=== PATIENT | female | born 1970 | race Caucasian/White ===

== ENCOUNTER 2022-05-09 09:46 | Observation (INO) | payer OTHER, SELFPAY ==
[2022-05-09] VITALS (19 sets, daily range): BP systolic 104–141; BP diastolic 68–89; PULSE 71–97; RESP 9–20; TEMP 36.5–36.8; O2SAT 97–100; BMI 29.2
--- NOTE | 2022-05-09 09:57 | DI.RAD.S_ITS ---
PROCEDURE: XR CHEST 1V INDICATIONS: chest pain TECHNIQUE: One view of the chest was acquired. COMPARISON: None. FINDINGS: Surgical changes and devices: None. Lungs and pleura: Lungs are clear. No pleural effusions or pneumothorax. Mediastinum: Mediastinal contours appear normal. Heart size is normal. Bones and chest wall: No suspicious bony lesions. Overlying soft tissues appear unremarkable. IMPRESSION: No acute cardiopulmonary disease process. Dictated by: Teetee Segura MD, PhD on 05/09/2022 at 10:40 Approved by: Teetee Segura MD, PhD on 05/09/2022 at 10:41
[2022-05-09 10:18] LABS: Add Manual Diff / Slide Review NO; Basophils Absolute Auto 0 /uL (0-100); Basophils Percent Auto 0.6 % (0-2); Eosinophils Absolute Auto 200 /uL (0-450); Eosinophils Percent Auto 2.4 % (2-4); Hematocrit 41.3 % (36-46); Lymphocytes Absolute Auto 2200 /uL (1100-4500); Lymphocytes Percent Auto 33.7 % (25-40); Mean Corpuscular HGB Conc 33.9 % (30-36); Mean Corpuscular Hemoglobin 30.7 PG (26-34); Mean Corpuscular Volume 90.5 fL (80-100); Monocytes Absolute Auto 300 /uL (0-900); Monocytes Percent Auto 4.6 % (3-14); Neutrophils Absolute Auto 3700 /uL (1500-7000); Neutrophils Percent Auto 58.7 % (50-75); Platelet Count 213 X10^3/uL (150-400); Red Blood Cell Count 4.56 X10^6/uL (4.0-5.2); Red Cell Distribution Width 12.7 % (11.6-14.8); White Blood Cell Count 6.4 X10^3/uL (4.5-11.0)
[2022-05-09 10:29] LABS: Alanine Aminotransferase 29 IU/L (<35); Albumin 4.7 g/dL (3.5-5.0); Albumin Globulin Ratio 1.5 (1.0-2.8); Alkaline Phosphatase 95 U/L (38-126); Aspartate Aminotransferase 30 IU/L (14-36); BUN Creatinine Ratio 20.6 (6-22); Bilirubin Total 0.4 mg/dL (0.2-1.3); Blood Urea Nitrogen 21 mg/dL (7-17); Calcium 9.5 mg/dL (8.4-10.2); Carbon Dioxide 25 mmol/L (22-32); Chloride 107 mmol/L (98-107); Creatine Kinase 230 U/L (30-135); Estimated Glomerular Filt Rate > 60 mL/min (>60); Globulin 3.1 g/dL (1.7-4.1); Glucose 121 mg/dL (70-100); HEMOLYSIS < 15 (0-50); Lipase 114 U/L (23-300); Potassium 4.2 mmol/L (3.4-5.1); Sodium 142 mmol/L (137-145); Total Protein 7.8 g/dL (6.3-8.2)
--- NOTE | 2022-05-09 10:32 | PC.NURSE ---
Pt states that she has had intermittent chest pain for years. Pt reports that she occasionally has flipped T waves d/t a coronary spasm and then it goes back to normal.
[2022-05-09 10:41] LABS: Troponin I < 0.012 ng/mL (0.01-0.034)
[2022-05-09 10:44] LABS: CKMB % Relative Index 1.7 % (1.5-5.0); Creatine Kinase MB 3.88 ng/mL (<2.37)
--- NOTE | 2022-05-09 11:05 | ED.CHESTPAIN ---
HPI - Chest Pain General Chief Complaint: Chest Pain Stated Complaint: Chest pain Time Seen by Provider: 05/09/22 10:53 Source: patient Mode of arrival: Family Vehicle Limitations: no limitations History of Present Illness HPI narrative: Patient here for non reproducible substernal chest pressure nonradiating without any nausea or sweating or dyspnea. Ongoing off and on for the past 1 month. She did take nitro prior to arrival and it did help. Not had aspirin today. Patient is retired from the . In 2010 she was stationed in [place], she had the same discomfort/chest pain and had a stress test and echocardiogram and noted have flipped T-waves which did resolve within a year. Four years later she was in [place] and had the same discomfort and worked up again by cardiology indeterminate to have coronary spasms. Was placed on nitroglycerin as well as amlodipine. Has been doing well until recently this past April. Primary care is trying to set her up with cardiology services but that has not materialized yet. She states she has strong family history of coronary disease including sister with [place]. at her age. Denies any recent illness. Related Data Home Medications Medication Instructions Recorded Confirmed acyclovir 200 mg capsule 200 mg PO BID 05/09/22 05/09/22 amlodipine 5 mg tablet 5 mg PO DAILY 05/09/22 05/09/22 famotidine 20 mg tablet 20 mg PO BID 05/09/22 05/09/22 indomethacin 50 mg capsule 100 mg PO BID 05/09/22 05/09/22 nitroglycerin 0.4 mg sublingual 0.4 mg sublingual Q5M PRN chest 05/09/22 05/09/22 tablet pain nortriptyline 10 mg capsule 20 mg PO BEDTIME 05/09/22 05/09/22 pantoprazole 20 mg tablet,delayed 20 mg PO DAILY 05/09/22 05/09/22 release rosuvastatin 20 mg tablet 20 mg PO DAILY 05/09/22 05/09/22 topiramate 100 mg tablet 50 mg PO BID 05/09/22 05/09/22 Allergies Allergy/AdvReac Type Severity Reaction Status Date / Time No Known Drug Allergies Allergy Verified 05/09/22 10:02 Review of Systems Review of Systems Narrative: GENERAL: Denies chills, fatigue, malaise, fever, sweats. HEENT: Denies sinus pain, ear pain, sore throat RESPIRATORY: Denies dyspnea, cough CARDIOVASCULAR: Positive for chest pain, negative for palpitations GASTROINTESTINAL: Denies nausea, vomiting, abdominal pain : Denies dysuria, frequency, hematuria MUSCULOSKELETAL: denies muscle or bony pain SKIN: Denies rash, skin lesions NEUROLOGIC: Denies weakness, numbness ROS Unobtainable: All systems reviewed & are unremarkable except as noted in HPI and below Patient History Medical History (Updated 05/09/22 @ 23:09 by FELIPE Russell) Coronary artery spasm Hyperlipidemia Lymphedema Migraines Overweight (BMI 25.0-29.9) [facility] History History of spinal fusion History of third molar tooth extraction Status post hysterectomy Family History Sister Myocardial infarction History of heart artery stent Father Myocardial infarction History of heart artery stent S/P CABG x 3 Social History household members: family Smoking Status: Former smoker Smoking Status: Former smoker tobacco type: cigarettes alcohol intake frequency: 0-2 drinks per day Substance Use Type: does not use Exam Narrative Exam Narrative: GENERAL: in no distress, not toxic not dyspneic HEAD: Normocephalic. EYES: Pupils equal round No scleral icterus. ENT: Mucous membranes moist. NECK: Trachea midline. CARDIOVASCULAR: Regular rate and rhythm without murmurs RESPIRATORY: Clear to auscultation. Breath sounds equal bilaterally. No wheezes, rales, or rhonchi. GASTROINTESTINAL: Abdomen soft, non-tender EXTREMITIES: No gross deformities. NEURO: AOx4. SKIN: Warm and dry PSYCH: Not anxious, is cooperative Initial Vital Signs Initial Vital Signs: Vital Signs Pulse Rate 97 H 05/09/22 09:51 Pulse Oximetry 99 05/09/22 09:51 Scores HEART Score Heart Score history: Slightly Suspicious Heart Score EKG: Non-Specific repolarization disturbance Heart Score Age: 45-64 years old Heart Score risk factors: 1-2 risk factors Heart Score troponin: < or = to normal limit Heart Score Total: 3 Course Course Course Narrative: No new issues during course of stay Decision to Admit Date: 05/09/22 Decision to Admit time: 11:09 Orders Ordered: Discontinued Medications Acetaminophen (Acetaminophen 325 Mg Tablet) 650 mg PO Q6HR PRN PRN Reason: Fever/Mild Pain (1-3) Last Admin: 05/10/22 08:20 Dose: 650 mg Documented By: HCW Acyclovir (Acyclovir 200 Mg Capsule) 200 mg PO BID [facility] Last Admin: 05/10/22 09:45 Dose: 200 mg Documented By: Admin: 05/09/22 21:57 Dose: Not Given Documented By: CHRISSY Acyclovir (Acyclovir 200 Mg Capsule) 400 mg PO BID [facility] Acyclovir (Acyclovir 400 Mg Tablet) 400 mg PO BID [facility] Amlodipine Besylate (Amlodipine 5 Mg Tablet) 5 mg PO DAILY [facility] Last Admin: 05/10/22 09:12 Dose: 5 mg Documented By: HCW Aspirin (Aspirin 81 Mg Chew Tab) 324 mg PO NOW ONE Stop: 05/09/22 11:06 Last Admin: 05/09/22 11:15 Dose: 324 mg Documented By: JOSEP Aspirin (Aspirin Ec 81 Mg Tablet) 81 mg PO DAILY [facility] Last Admin: 05/10/22 09:12 Dose: 81 mg Documented By: HCW Atorvastatin Calcium (Atorvastatin 20 Mg Tablet) 40 mg PO DAILY [facility] Last Admin: 05/10/22 09:12 Dose: 40 mg Documented By: HCW Enoxaparin Sodium (Enoxaparin 40 Mg/0.4 Ml Syringe) 40 mg SUBCUT DAILY [facility] Last Admin: 05/10/22 09:13 Dose: Not Given Documented By: HCW Famotidine (Famotidine 20 Mg Tablet) 20 mg PO BID [facility] Last Admin: 05/10/22 09:12 Dose: 20 mg Documented By: Admin: 05/09/22 21:57 Dose: Not Given Documented By: CHRISSY Sodium Chloride (Normal Saline 0.9%) 1,000 mls @ 1,000 mls/hr IV BOLUS ONE Stop: 05/09/22 12:04 Last Infusion: 05/09/22 12:23 Dose: 0 mls/hr Documented By: Admin: 05/09/22 11:18 Dose: 1,000 mls/hr Documented By: JOSEP Nitroglycerin (Nitroglycerin Oint 1 Inch/Gm Oint...G.) 0.5 inch TOP NOW ONE Stop: 05/09/22 11:06 Last Admin: 05/09/22 11:16 Dose: 0.5 inch Documented By: JOSEP Nortriptyline HCl (Nortriptyline 10 Mg Capsule) 20 mg PO BEDTIME [facility] Last Admin: 05/09/22 21:58 Dose: Not Given Documented By: CHRISSY Pantoprazole Sodium (Pantoprazole Dr 20 Mg Tablet) 20 mg PO DAILY [facility] Sodium Chloride (Sodium Chloride 0.9% Flush) 10 ml IV BID [facility] Last Admin: 05/10/22 09:21 Dose: 10 ml Documented By: Admin: 05/09/22 21:55 Dose: 10 ml Documented By: CHRISSY Sodium Chloride (Sodium Chloride 0.9% Flush) 10 ml IV PRN PRN PRN Reason: Flush Topiramate (Topiramate 100 Mg Tablet) 50 mg PO BID [facility] Last Admin: 05/10/22 09:12 Dose: 50 mg Documented By: Admin: 05/09/22 21:58 Dose: Not Given Documented By: CHRISSY Reevaluation(s) Reevaluation #1: Patient agrees for admission for a stress test echocardiogram Time: 11:11 Consultations Consultation #1: Spoke with hospitalist Dr. Elizabeth, would like troponin repeat done at 2:00 p.m. and if normal he will admit Time: 11:23 Consultation #2: Spoke with Cardiology Dr. Valentine, reviewed EKG troponin risk factors, at this time appropriate for treadmill stress test and not nuclear stress test, plus/minus echocardiogram. If reassuring stress test then will need to increased dosing of amlodipine at home. Time: 12:10 Vital Signs Vital signs: Vital Signs - 8 hr 05/09/22 09:57 05/09/22 11:16 05/09/22 09:51 Temperature 97.9 F Pulse Rate 85 77 97 H Respiratory Rate 20 Blood Pressure 141/89 H 118/73 Pulse Oximetry 100 99 Oxygen Delivery Method Room Air 05/09/22 09:52 05/09/22 09:52 05/09/22 10:00 Temperature Pulse Rate 94 H Respiratory Rate Blood Pressure 141/89 H 118/76 Pulse Oximetry 100 Oxygen Delivery Method 05/09/22 10:00 05/09/22 10:30 05/09/22 10:30 Temperature Pulse Rate 77 78 Respiratory Rate 13 Blood Pressure 128/80 Pulse Oximetry 100 100 Oxygen Delivery Method 05/09/22 11:00 05/09/22 11:00 05/09/22 11:18 Temperature Pulse Rate 82 Respiratory Rate 18 Blood Pressure 118/73 107/69 Pulse Oximetry 99 Oxygen Delivery Method 05/09/22 11:18 05/09/22 11:30 05/09/22 11:30 Temperature Pulse Rate 84 76 Respiratory Rate 11 L 9 L Blood Pressure 122/76 Pulse Oximetry 100 100 Oxygen Delivery Method 05/09/22 11:47 05/09/22 11:47 05/09/22 12:00 Temperature Pulse Rate 90 Respiratory Rate 13 Blood Pressure 115/75 120/75 Pulse Oximetry 100 Oxygen Delivery Method 05/09/22 12:00 05/09/22 12:30 05/09/22 12:30 Temperature Pulse Rate 75 73 Respiratory Rate 13 13 Blood Pressure 110/72 Pulse Oximetry 100 99 Oxygen Delivery Method 05/09/22 13:00 05/09/22 13:00 05/09/22 13:30 Temperature Pulse Rate 72 Respiratory Rate 16 Blood Pressure 118/72 110/75 Pulse Oximetry 99 Oxygen Delivery Method 05/09/22 13:30 Temperature Pulse Rate 72 Respiratory Rate 14 Blood Pressure Pulse Oximetry 99 Oxygen Delivery Method MDM - Chest Pain Differential Diagnosis Differential diagnosis: Likely pneumothorax, stable angina, unstable angina pectoris, atypical chest pain, st elevation myocardial infarction, costochondritis and chest pain Lab Data Result diagrams: 05/09/22 10:05 05/09/22 10:05 Labs: Lab Results 05/09/22 05/09/22 05/09/22 Range/Units 10:05 10:05 10:05 WBC 6.4 (4.5-11.0) X10^3/uL RBC 4.56 (4.0-5.2) X10^6/uL Hgb 14.0 (12.0-16.0) g/dL Hct 41.3 (36-46) % MCV 90.5 (80-100) fL MCH 30.7 (26-34) PG MCHC 33.9 (30-36) % RDW 12.7 (11.6-14.8) % Plt Count 213 (150-400) X10^3/uL Neut % (Auto) 58.7 (50-75) % Lymph % (Auto) 33.7 (25-40) % [place] % (Auto) 4.6 (3-14) % Eos % (Auto) 2.4 (2-4) % Baso % (Auto) 0.6 (0-2) % Neut # (Auto) 3700 (6348-8523) /uL Lymph # (Auto) 2200 (0126-4640) /uL [place] # (Auto) 300 (0-900) /uL Eos # (Auto) 200 (0-450) /uL Baso # (Auto) 0 (0-100) /uL Sodium 142 (137-145) mmol/L Potassium 4.2 (3.4-5.1) mmol/L Chloride 107 (98-107) mmol/L Carbon Dioxide 25 (22-32) mmol/L BUN 21 H (7-17) mg/dL Creatinine 1.02 (0.52-1.04) mg/dL Estimated GFR > 60 (>60) mL/min BUN/Creatinine Ratio 20.6 (6-22) Glucose 121 H (70-100) mg/dL Hemoglobin A1c 5.8 (4.0-6.0) % Calcium 9.5 (8.4-10.2) mg/dL Magnesium 2.0 (1.6-2.3) mg/dL Total Bilirubin 0.4 (0.2-1.3) mg/dL AST 30 (14-36) IU/L ALT 29 (<35) IU/L Alkaline Phosphatase 95 (38-126) U/L Total Creatine Kinase 230 H (30-135) U/L CK-MB (CK-2) 3.88 H (<2.37) ng/mL CK-MB (CK-2) Rel Index 1.7 (1.5-5.0) % Troponin I < 0.012 (0.01-0.034) ng/mL Total Protein 7.8 (6.3-8.2) g/dL Albumin 4.7 (3.5-5.0) g/dL Globulin 3.1 (1.7-4.1) g/dL Albumin/Globulin Ratio 1.5 (1.0-2.8) Triglycerides (35-150) mg/dL Cholesterol (140-199) mg/dL LDL Cholesterol, Calc (<100) mg/dL HDL Cholesterol (40-60) mg/dL Lipase 114 (23-300) U/L Urine RBC (0-5/HPF) Urine WBC (0-5/HPF) Amorphous Sediment Urine Bacteria (None) Ur Culture Indicated? SARS-CoV-2 (PCR) (Negative) 05/09/22 05/09/22 05/09/22 Range/Units 10:05 11:08 11:52 WBC (4.5-11.0) X10^3/uL RBC (4.0-5.2) X10^6/uL Hgb (12.0-16.0) g/dL Hct (36-46) % MCV (80-100) fL MCH (26-34) PG MCHC (30-36) % RDW (11.6-14.8) % Plt Count (150-400) X10^3/uL Neut % (Auto) (50-75) % Lymph % (Auto) (25-40) % [place] % (Auto) (3-14) % Eos % (Auto) (2-4) % Baso % (Auto) (0-2) % Neut # (Auto) (7294-1272) /uL Lymph # (Auto) (5934-2502) /uL [place] # (Auto) (0-900) /uL Eos # (Auto) (0-450) /uL Baso # (Auto) (0-100) /uL Sodium (137-145) mmol/L Potassium (3.4-5.1) mmol/L Chloride (98-107) mmol/L Carbon Dioxide (22-32) mmol/L BUN (7-17) mg/dL Creatinine (0.52-1.04) mg/dL Estimated GFR (>60) mL/min BUN/Creatinine Ratio (6-22) Glucose (70-100) mg/dL Hemoglobin A1c (4.0-6.0) % Calcium (8.4-10.2) mg/dL Magnesium (1.6-2.3) mg/dL Total Bilirubin (0.2-1.3) mg/dL AST (14-36) IU/L ALT (<35) IU/L Alkaline Phosphatase (38-126) U/L Total Creatine Kinase (30-135) U/L CK-MB (CK-2) (<2.37) ng/mL CK-MB (CK-2) Rel Index (1.5-5.0) % Troponin I (0.01-0.034) ng/mL Total Protein (6.3-8.2) g/dL Albumin (3.5-5.0) g/dL Globulin (1.7-4.1) g/dL Albumin/Globulin Ratio (1.0-2.8) Triglycerides 85 (35-150) mg/dL Cholesterol 145 (140-199) mg/dL LDL Cholesterol, Calc 91 (<100) mg/dL HDL Cholesterol 37 L (40-60) mg/dL Lipase (23-300) U/L Urine RBC 1-5/hpf (0-5/HPF) Urine WBC 5-10/hpf H (0-5/HPF) Amorphous Sediment 1+ Urine Bacteria Many (>30) H (None) Ur Culture Indicated? Specimen cultured SARS-CoV-2 (PCR) Negative (Negative) 05/09/22 Range/Units 14:04 WBC (4.5-11.0) X10^3/uL RBC (4.0-5.2) X10^6/uL Hgb (12.0-16.0) g/dL Hct (36-46) % MCV (80-100) fL MCH (26-34) PG MCHC (30-36) % RDW (11.6-14.8) % Plt Count (150-400) X10^3/uL Neut % (Auto) (50-75) % Lymph % (Auto) (25-40) % [place] % (Auto) (3-14) % Eos % (Auto) (2-4) % Baso % (Auto) (0-2) % Neut # (Auto) (3311-8010) /uL Lymph # (Auto) (6211-2369) /uL [place] # (Auto) (0-900) /uL Eos # (Auto) (0-450) /uL Baso # (Auto) (0-100) /uL Sodium (137-145) mmol/L Potassium (3.4-5.1) mmol/L Chloride (98-107) mmol/L Carbon Dioxide (22-32) mmol/L BUN (7-17) mg/dL Creatinine (0.52-1.04) mg/dL Estimated GFR (>60) mL/min BUN/Creatinine Ratio (6-22) Glucose (70-100) mg/dL Hemoglobin A1c (4.0-6.0) % Calcium (8.4-10.2) mg/dL Magnesium (1.6-2.3) mg/dL Total Bilirubin (0.2-1.3) mg/dL AST (14-36) IU/L ALT (<35) IU/L Alkaline Phosphatase (38-126) U/L Total Creatine Kinase 179 H (30-135) U/L CK-MB (CK-2) 3.85 H (<2.37) ng/mL CK-MB (CK-2) Rel Index 2.2 (1.5-5.0) % Troponin I < 0.012 (0.01-0.034) ng/mL Total Protein (6.3-8.2) g/dL Albumin (3.5-5.0) g/dL Globulin (1.7-4.1) g/dL Albumin/Globulin Ratio (1.0-2.8) Triglycerides (35-150) mg/dL Cholesterol (140-199) mg/dL LDL Cholesterol, Calc (<100) mg/dL HDL Cholesterol (40-60) mg/dL Lipase (23-300) U/L Urine RBC (0-5/HPF) Urine WBC (0-5/HPF) Amorphous Sediment Urine Bacteria (None) Ur Culture Indicated? SARS-CoV-2 (PCR) (Negative) Urine Dip Bedside Urine Glucose Negative Bedside Urine Bilirubin - Negative Bedside Urine Ketone - Negative Urine Specific [place] 1.015 Bedside Urine Occult Blood - Negative Bedside Urine pH 6.0 Bedside Urine Protein - Negative Bedside Urine Urobilinogen - Negative Bedside Urine Nitrite - Negative Bedside Urine Leukocytes +++ 500 Esterase Imaging Data Chest x-ray: Radiologist's Impression: [address] [address] XRay Report Signed Patient: Sara Mcclellan MR#: [id number] : 1970 Acct:[id number] Age/Sex: 51 / F Date of Service: 05/09/22 Loc: ED Accession Number: [id number] ?? Procedure: XR chest 1V Ordering Provider: Reginaldo Lake MD PROCEDURE:? XR CHEST 1V ? INDICATIONS:? chest pain ? TECHNIQUE:? One view of the chest was acquired.? ? COMPARISON:? None. ? FINDINGS:? ? Surgical changes and devices:? None.? ? Lungs and pleura:? Lungs are clear.? No pleural effusions or pneumothorax.? ? Mediastinum:? Mediastinal contours appear normal.? Heart size is normal.? ? Bones and chest wall:? No suspicious bony lesions.? Overlying soft tissues appear unremarkable.? ? IMPRESSION:? No acute cardiopulmonary disease process. ? ? Dictated by: Teetee Segura MD, PhD on 05/09/2022 at 10:40 ? ? Approved by: Teetee Segura MD, PhD on 05/09/2022 at 10:41 ? ECG Data Interpretation: Normal sinus rhythm rate [address] elevation or depression MDM Narrative Medical decision making narrative: Appropriate for admission for chest pain rule out and stress test and echocardiogram. Two sets of enzymes were done. Chest pain-free during course of ER stay. Reviewed with patient and hospitalist and agree for admit. Patient does have significant primary family risk factors of coronary artery disease Discharge Plan Departure Patient Disposition: Admitted as Observation Clinical Impression: Chest pain Admit Date/Time: 05/09/22 14:45 Admit Provider: Mayo Elizabeth
[2022-05-09] MEDS: ASPIRIN 81 MG CHEW TAB 324 MG PO (11:15)
[2022-05-09] MEDS: NITROGLYCERIN OINT 1 INCH/GM OINT...G. 0.5 INCH TOP (11:16)
[2022-05-09] MEDS: SODIUM CHLORIDE 0.9% 1,000 ML 1000 ML IV (11:18)
[2022-05-09 11:39] LABS: COVID19 -Nasal RAPID Negative (Negative)
[2022-05-09 12:06] LABS: Amorphous Sediment Urine 1+; Bacteria Urine Many (>30); Culture Indicated Urine Specimen Cultured; RBC Urine 1-5/HPF (0-5/HPF); WBC Urine 5-10/HPF (0-5/HPF)
--- NOTE | 2022-05-09 12:07 | PC.NURSE ---
Dr. Lake asked to speak to Dr. Valentine who is client service and consulting manager for cardiology. I paged Dr. Valentine at [phone] and he responded within the minute and I connected him with Dr. Lake.
[2022-05-09 14:25] LABS: Creatine Kinase 179 U/L (30-135)
[2022-05-09 14:38] LABS: Troponin I < 0.012 ng/mL (0.01-0.034)
[2022-05-09 14:40] LABS: CKMB % Relative Index 2.2 % (1.5-5.0); Creatine Kinase MB 3.85 ng/mL (<2.37)
--- NOTE | 2022-05-09 14:48 | DI.ECHO.S_ITS ---
[facility]---------+ [facility] +---------+ : : [address] [address] : : : : [id number] : : : : Phone: [phone]+ Echocardiogram Report + + :Name: ADONAY GONSALVES Study Date: 05/10/2022 Height: 63 in : :[facility] ReadingLocation: Weight: 165 lb : : Gender: Female BSA: 1.8 m2 : :: 1970 Age: 51 yrs BP: 117/74 mmHg: :Reason For Study: CHEST PAIN : :Ordering Physician: LUIS, : :WENDY Ruth D.O Performed By: Mirtha Valdez : :Referring: WENDY SMITH D.O : + + Interpretation Summary The ejection fraction is estimated to be 50-55%. There is no significant valvular heart disease. Procedure: A two-dimensional transthoracic echocardiogram with color flow and Doppler was performed. The study quality was technically adequate. There is no prior echocardiogram noted for this patient. The patient was in sinus rhythm with heart rates between 74--82 bpm during the exam. Left Ventricle: The left ventricle is normal in size and wall thickness. The ejection fraction is estimated to be 50-55%. Left ventricular wall motion is normal. Right Ventricle: The right ventricle is normal in size and function. Atria: The left atrial size is normal. Right atrial size is normal. There is no Doppler evidence for an interatrial shunt. Mitral Valve: The mitral valve is normal in structure and function. There is trace mitral regurgitation. Aortic Valve: The aortic valve is trileaflet. The aortic valve opens well. There is no aortic valve stenosis. No aortic regurgitation is present. Tricuspid Valve: The tricuspid valve is normal in structure and function. There is mild tricuspid regurgitation. The right ventricular systolic pressure is estimated to be at least 20 mmHg based on an estimated right atrial pressure of 3 mm Hg. Pulmonic Valve: The pulmonic valve leaflets are thin and pliable; valve motion is normal. There is no pulmonic valvular regurgitation. Great Vessels: The aortic root is normal size. The dimensions of the ascending aorta are normal. The IVC is of normal diameter and collapses greater than 50% with a sniff. This suggests a low right atrial pressure of 3 mm Hg. Pericardium/ Pleura There is no pericardial effusion. There is no pleural effusion. MMode/2D Measurements & Calculations LVIDd: 3.9 cm LVOT diam: 2.1 cm LVIDs: 2.9 cm Ao root diam: 2.7 cm FS: 25.4 % asc Aorta Diam: 3.3 cm IVSd: 0.81 cm Ao Arch Diam (Prox Trans): 2.8 cm LVPWd: 0.68 cm LV tejeda. diameter/BSA (cm/m^2): 2.2 LV sys. diameter/BSA (cm/m^2): 1.6 LA A2 area: 13.1 cm2 RA long axis: 4.5 cm LA A4 area: 13.9 cm2 RA area: 12.8 cm2 LA length (vol): 4.5 cm RA vol: 30.8 ml LA vol: 34.1 ml RA : 17.3 ml/m2 LA vol index: 19.1 ml/m2 IVC diam: 1.6 cm RVD1 (basal): 3.1 cm RVD2 (mid): 2.6 cm TAPSE: 1.7 cm Doppler Measurements & Calculations Ao V2 max: 107.8 cm/sec LVOT Max Compa: 90.3 cm/sec Ao V2 mean: 70.9 cm/sec LV V1 max P.3 mmHg Ao max P.6 mmHg LV V1 VTI: 17.5 cm Ao mean P.3 mmHg LINDA(I,D): 3.4 cm2 Ao V2 VTI: 18.9 cm LINDA(V,D): 3.0 cm2 sev ratio: 0.93 LINDA indexed to BSA (cm^2/m^2): 1.9 MV E max compa: 81.0 cm/sec TR max compa: 208.3 cm/sec MV A max compa: 73.9 cm/sec TR max P.4 mmHg MV E/A: 1.1 PA V2 max: 74.7 cm/sec Med Peak E' Compa: 8.9 cm/sec PA V2 mean: 50.7 cm/sec E/E' med: 9.1 PA mean P.2 mmHg Lat Peak E' Compa: 11.7 cm/sec PA pr(Accel): 39.6 mmHg E/E' lat: 6.9 E/e' average: 8.0 MV dec time: 0.18 sec SV(LVOT): 63.4 ml Reading Physician:02:30 PM
[2022-05-09 15:25] LABS: Cholesterol 145 mg/dL (140-199); HDL Cholesterol 37 mg/dL (40-60); LDL Cholesterol Calculated 91 mg/dL (<100); Triglycerides 85 mg/dL (35-150)
[2022-05-09 15:26] LABS: Hemoglobin A1C% w Est Avg Glu 5.8 % (4.0-6.0)
[2022-05-09] MEDS: SODIUM CHLORIDE 0.9% FLUSH 10 ML IV (21:55)
--- NOTE | 2022-05-09 22:55 | PM.HP.1 ---
History of Present Illness History of Present Illness Date Patient Seen: 05/09/22 Time Patient Seen: 15:56 Chief complaint: Chest pain Narrative: Sara Mcclellan is a 51-year-old female with a history coronary spasms, migraines, hyperlipidemia, left leg lymphedema, and right-sided unilateral neuralgiform headaches, who presented to the ED for non reproducible, sharp, substernal chest pain, that began earlier in the day while walking her dog, without radiation nausea, vomiting, diaphoresis, or shortness of breath. Has been occurring off and on for the past 1 month.? She states that she took an oral nitro at home, which changed the pain from sharp to a pressure, but did not resolve. The pressure continued until she presented to the ED where they placed a nitro patch which then relieved the chest pressure. Not had aspirin today.? Patient is retired from the .? In 2010 she was stationed in [place], she had the same discomfort/chest pain and had a stress test and echocardiogram and noted have flipped T-waves which did resolve within a year.? Four years later she was in [place] and had the same discomfort and worked up again by cardiology indeterminate to have coronary spasms.? Was placed on nitroglycerin as well as amlodipine.? Has been doing well until recently this past April.? Primary care is trying to set her up with cardiology services but that has not materialized yet.? Patient reports that her sister had multiple stents and SC and at age of 54, her father also had his 1st heart attack it 41 had multiple bypass surgeries as well. Upon admit patient is resting comfortably in bed denies chest pain, shortness of breath, swelling of extremities, abdominal pain, nausea, vomiting, diarrhea, fever, chills, cough, recent illness, headache, acute changes in vision, balance or coordination issues, weakness, numbness, tingling, recent injury or trauma. Upon admit patient's vitals are stable afebrile temp 98.2?, BP 126/83, HR 91, RR 16, O2 saturation 100% on room air. Patient's CBC CMP are all unremarkable, T CK 179, CK-MB 3.85, troponin x2 are negative, lipids are negative, lipase negative, chest x-ray no acute cardiopulmonary processes. Patient's EKG normal sinus rhythm with a rate of [address] or T-wave changes. Heart Score:2 Patient admitted for chest pain and risk stratification. ? Patient History Medical History (Updated 05/09/22 @ 23:09 by FELIPE Russell) Coronary artery spasm Hyperlipidemia Lymphedema Migraines Overweight (BMI 25.0-29.9) Shrt lst uni nral hdache Surgical History History of spinal fusion History of third molar tooth extraction Status post hysterectomy Family & Social History Family History Sister Myocardial infarction History of heart artery stent Father Myocardial infarction History of heart artery stent S/P CABG x 3 Social History: household members family Prior Living Arrangements House Safety & Behavioral: Feels Safe in Current Yes Environment Been Physically Hurt or No Threatened By a Person Tobacco & Substance use: Smoking Status Former smoker alcohol intake frequency 0-2 drinks per day Substance Use Type does not use Meds Home Medications and Allergies Home Medications Medication Instructions Recorded Confirmed Type acyclovir 200 mg capsule 200 mg PO BID 05/09/22 05/09/22 History amlodipine 5 mg tablet 5 mg PO DAILY 05/09/22 05/09/22 History famotidine 20 mg tablet 20 mg PO BID 05/09/22 05/09/22 History indomethacin 50 mg capsule 100 mg PO BID 05/09/22 05/09/22 History nitroglycerin 0.4 mg sublingual 0.4 mg sublingual Q5M PRN chest 05/09/22 05/09/22 History tablet pain nortriptyline 10 mg capsule 20 mg PO BEDTIME 05/09/22 05/09/22 History pantoprazole 20 mg tablet,delayed 20 mg PO DAILY 05/09/22 05/09/22 History release rosuvastatin 20 mg tablet 20 mg PO DAILY 05/09/22 05/09/22 History topiramate 100 mg tablet 50 mg PO BID 05/09/22 05/09/22 History Allergies Allergy/AdvReac Type Severity Reaction Status Date / Time No Known Drug Allergies Allergy Verified 05/09/22 10:02 Review of Systems Review of Systems Narrative: All 12 point systems reviewed with the patient and are negative except otherwise documented. Exam Vital Signs (past 8 hours): - 05/09/22 15:00 05/09/22 15:00 05/09/22 15:50 Temperature 98.2 F Pulse Rate 78 91 H Respiratory Rate 12 16 Blood Pressure 104/68 126/83 Pulse Oximetry 99 100 Oxygen Flow Rate 0 05/09/22 21:40 Temperature 97.7 F Pulse Rate 78 Respiratory Rate 14 Blood Pressure 112/72 Pulse Oximetry 97 Oxygen Flow Rate 0 Oxygen Delivery Method Room Air Oxygen Flow Rate 0 Narrative Exam Narrative: General: Patient is a well-developed, well-nourished female in no distress at this time. HEENT: Normocephalic, atraumatic, extraocular muscles intact, oral pharynx is clear and mucous membranes are moist. Neck is supple and symmetric, trachea is midline, no adenopathy, no thyroid enlargement, nontender, no masses palpated. Negative for JVD Chest: Normal AP diameter and contour without kyphoscoliosis, no nasal flaring, retractions, or tachypneic labored Lungs: Auscultation of all lung calvo are clear without adventitious sounds, wheezes, rhonchi, or rales. Cardio: S1 & S2 with regular rate and rhythm without murmur, rubs, or gallops, no carotid bruit, no cardiac pulsations present. Abdomen: Soft nontender, negative for organomegaly, or masses. Bowel sounds are present in all 4 quadrants without guarding or rebound, no CVA tenderness. Musculoskeletal: Muscle strength and tone are equal within normal limits, no deformity, crepitus, effusions, cyanosis, clubbing or edema present. Full range of motion intact radial and pedal pulses are normal. Skin: Warm dry and intact without rashes, ulcerations or petechiae. Neuro: Alert and orientated x3, strength is +5/5 in all extremities, sensation to touch intact, no gross deficits noted of cranial nerves. Psych: Patient has a well-kept appearance, appropriate affect, mental status attitude thought context and judgment are appropriate for age. Objective Labs Result Diagrams: 05/09/22 10:05 05/09/22 10:05 Labs: Laboratory Results - last 24 hr 05/09/22 05/09/22 05/09/22 10:05 10:05 10:05 WBC 6.4 RBC 4.56 Hgb 14.0 Hct 41.3 MCV 90.5 MCH 30.7 MCHC 33.9 RDW 12.7 Plt Count 213 Neut % (Auto) 58.7 Lymph % (Auto) 33.7 [place] % (Auto) 4.6 Eos % (Auto) 2.4 Baso % (Auto) 0.6 Neut # (Auto) 3700 Lymph # (Auto) 2200 [place] # (Auto) 300 Eos # (Auto) 200 Baso # (Auto) 0 Sodium 142 Potassium 4.2 Chloride 107 Carbon Dioxide 25 BUN 21 H Creatinine 1.02 Estimated GFR > 60 BUN/Creatinine Ratio 20.6 Glucose 121 H Hemoglobin A1c 5.8 Calcium 9.5 Magnesium 2.0 Total Bilirubin 0.4 AST 30 ALT 29 Alkaline Phosphatase 95 Total Creatine Kinase 230 H CK-MB (CK-2) 3.88 H CK-MB (CK-2) Rel Index 1.7 Troponin I < 0.012 Total Protein 7.8 Albumin 4.7 Globulin 3.1 Albumin/Globulin Ratio 1.5 Triglycerides Cholesterol LDL Cholesterol, Calc HDL Cholesterol Lipase 114 Urine RBC Urine WBC Amorphous Sediment Urine Bacteria Ur Culture Indicated? SARS-CoV-2 (PCR) 05/09/22 05/09/22 05/09/22 10:05 11:08 11:52 WBC RBC Hgb Hct MCV MCH MCHC RDW Plt Count Neut % (Auto) Lymph % (Auto) [place] % (Auto) Eos % (Auto) Baso % (Auto) Neut # (Auto) Lymph # (Auto) [place] # (Auto) Eos # (Auto) Baso # (Auto) Sodium Potassium Chloride Carbon Dioxide BUN Creatinine Estimated GFR BUN/Creatinine Ratio Glucose Hemoglobin A1c Calcium Magnesium Total Bilirubin AST ALT Alkaline Phosphatase Total Creatine Kinase CK-MB (CK-2) CK-MB (CK-2) Rel Index Troponin I Total Protein Albumin Globulin Albumin/Globulin Ratio Triglycerides 85 Cholesterol 145 LDL Cholesterol, Calc 91 HDL Cholesterol 37 L Lipase Urine RBC 1-5/hpf Urine WBC 5-10/hpf H Amorphous Sediment 1+ Urine Bacteria Many (>30) H Ur Culture Indicated? Specimen cultured SARS-CoV-2 (PCR) Negative 05/09/22 14:04 WBC RBC Hgb Hct MCV MCH MCHC RDW Plt Count Neut % (Auto) Lymph % (Auto) [place] % (Auto) Eos % (Auto) Baso % (Auto) Neut # (Auto) Lymph # (Auto) [place] # (Auto) Eos # (Auto) Baso # (Auto) Sodium Potassium Chloride Carbon Dioxide BUN Creatinine Estimated GFR BUN/Creatinine Ratio Glucose Hemoglobin A1c Calcium Magnesium Total Bilirubin AST ALT Alkaline Phosphatase Total Creatine Kinase 179 H CK-MB (CK-2) 3.85 H CK-MB (CK-2) Rel Index 2.2 Troponin I < 0.012 Total Protein Albumin Globulin Albumin/Globulin Ratio Triglycerides Cholesterol LDL Cholesterol, Calc HDL Cholesterol Lipase Urine RBC Urine WBC Amorphous Sediment Urine Bacteria Ur Culture Indicated? SARS-CoV-2 (PCR) Assessment & Plan Assessment & Plan narrative: Sara Mcclellan is a 51-year-old female with a history coronary spasms, migraines, hyperlipidemia, left leg lymphedema, and right-sided unilateral neuralgiform headaches, who is admitted for chest pain. 1. Chest pain, substernal nonradiating, acute on chronic, in the setting of coronary spasm, present on admission -chest pain was resolved at the time of admit-patient is asymptomatic and stable. -vital signs are stable, troponin x2 negative, CK-MB 3.85. -EKG NSR at a rate of [address] or T-wave changes -treadmill stress test & Echo ordered tomorrow -ASA, Nitro ordered -continue patient's amlodipine 2. Hyperlipidemia, chronic, present on admission related to overweight -Lipitor given in place of patients rouvastatin -lipid panel within normal limits 3. Overweight as evidence by BMI of 29.2, acute on chronic, present on admission -patient receiving dietary education regarding diet lifestyle and weight loss through PCP 4. Unilateral neuralgiform headaches (right)/migraines, chronic, present on admission -continue nortriptyline, Topamax 5. Lymphedema, left leg, chronic, present on admission -continue indomethacin 6. GERD, chronic, present on admission -continue famotidine Code status: Full Surrogate decision maker: Kirk SERRA PCR:Negative DVT/VTE prophylaxis: Lovenox and SCDs Disposition: Patient admitted for observation, treadmill stress and echo tomorrow expected length of stay less than 2 midnights. I have utilized all available immediate resources to obtain, update, or review the patient's current medications. I confirmed that the patient's advanced care plan is present, Code status is documented and/or surrogate decision maker is listed in the patient's medical record. Time Spent With Patient Critical Care time: I spent a total of [] minutes of critical care time on this patient's care today; this time is exclusive of procedural time.
[2022-05-10 01:00] VITALS: BP 104/64; PULSE 60; RESP 14; TEMP 36.4; O2SAT 100
[2022-05-10 04:50] VITALS: BP 111/71; PULSE 77; RESP 14; TEMP 36.3; O2SAT 97
[2022-05-10 05:43] LABS: Troponin I < 0.012 ng/mL (0.01-0.034)
[2022-05-10 08:00] VITALS: BP 116/78; PULSE 81; RESP 18; TEMP 36.5; O2SAT 99
--- NOTE | 2022-05-10 08:09 | P.DS_ITS ---
History of Present Illness History of Present Illness Date Patient Seen: 05/10/22 Time Patient Seen: 17:00 Chief complaint: Chest pain Narrative: Sara Mcclellan is a 51-year-old female with a history coronary spasms, migraines, hyperlipidemia, left leg lymphedema, and right-sided unilateral neuralgiform headaches, who presented to the ED for non reproducible, sharp, substernal chest pain, that began earlier in the day while walking her dog, without radiation nausea, vomiting, diaphoresis, or shortness of breath. Has been occurring off and on for the past 1 month.? She states that she took an oral nitro at home, which changed the pain from sharp to a pressure, but did not resolve.? The pressure continued until she presented to the ED where they placed a nitro patch which then relieved the chest pressure. Not had aspirin today.? Patient is retired from the .? In 2010 she was stationed in [place], she had the same discomfort/chest pain and had a stress test and echocardiogram and noted have flipped T-waves which did resolve within a year.? Four years later she was in [place] and had the same discomfort and worked up again by cardiology indeterminate to have coronary spasms.? Was placed on nitroglycerin as well as amlodipine.? Has been doing well until recently this past April.? Primary care is trying to set her up with cardiology services but that has not materialized yet.? Patient reports that her sister had multiple stents and CA and at age of 54, her father also had his 1st heart attack it 41 had multiple bypass surgeries as well.? Upon admit patient is resting comfortably in bed denies chest pain, shortness of breath, swelling of extremities, abdominal pain, nausea, vomiting, diarrhea, fever, chills, cough, recent illness, headache, acute changes in vision, balance or coordination issues, weakness, numbness, tingling, recent injury or trauma. Upon admit patient's vitals are stable afebrile temp 98.2?, BP 126/83, HR 91, RR 16, O2 saturation 100% on room air.? Patient's CBC CMP are all unremarkable, T CK 179, CK-MB 3.85, troponin x2 are negative, lipids are negative, lipase negative, chest x-ray no acute cardiopulmonary processes.? Patient's EKG normal sinus rhythm with a rate of [address] or T-wave changes. Heart Score:2? Patient admitted for chest pain and risk stratification. ? Discharge Providers Provider Date of admission: 05/09/22 14:45 Discharge Date: 05/10/22 Primary care physician: Jenny Mccoy MD Discharge provider: Mayo Elizabeth DO Summary Hospital Course Discharge Diagnosis: 1. Chest pain, substernal nonradiating, acute on chronic, in the setting of coronary spasm, present on admission -chest pain was resolved at the time of admit-patient is asymptomatic and stable. -vital signs are stable, troponin x2 negative, CK-MB 3.85. -EKG NSR at a rate of [address] or T-wave changes -treadmill stress test & Echo came back as normal -ASA, Nitro ordered -continued patient's amlodipine 2. Hyperlipidemia, chronic, present on admission related to overweight -Lipitor given in place of patients rouvastatin -lipid panel within normal limits 3. Overweight as evidence by BMI of 29.2, acute on chronic, present on admission -patient receiving dietary education regarding diet lifestyle and weight loss through PCP 4. Unilateral neuralgiform headaches (right)/migraines, chronic, present on admission -continue nortriptyline, Topamax 5. Lymphedema, left leg, chronic, present on admission -continue indomethacin 6. GERD, chronic, present on admission -continue famotidine Hospital Course: Admitted due to chest pain. Trop negative x3 and EKG normal. Underwent nuc med stress test and echo which were normal. Patient did not have additional chest pain. She was discharged home to / with her PCP. Exam Vital Signs (past 8 hours): - 05/10/22 01:00 05/10/22 04:50 Temperature 97.5 F L 97.3 F L Pulse Rate 60 77 Respiratory Rate 14 14 Blood Pressure 104/64 111/71 Pulse Oximetry 100 97 Oxygen Flow Rate 0 0 Oxygen Delivery Method Room Air Oxygen Flow Rate 0 Narrative Exam Narrative: General: Patient is a well-developed, well-nourished female in no distress at this time. HEENT: Normocephalic, atraumatic, extraocular muscles intact, oral pharynx is clear and mucous membranes are moist. Neck is supple and symmetric, trachea is midline, no adenopathy, no thyroid enlargement, nontender, no masses palpated. Negative for JVD Chest: Normal AP diameter and contour without kyphoscoliosis, no nasal flaring, retractions, or tachypneic labored Lungs: Auscultation of all lung calvo are clear without adventitious sounds, wheezes, rhonchi, or rales. Cardio: S1 & S2 with regular rate and rhythm without murmur, rubs, or gallops, no carotid bruit, no cardiac pulsations present. Abdomen: Soft nontender, negative for organomegaly, or masses. Bowel sounds are present in all 4 quadrants without guarding or rebound, no CVA tenderness. Musculoskeletal: Muscle strength and tone are equal within normal limits, no deformity, crepitus, effusions, cyanosis, clubbing or edema present. Full range of motion intact radial and pedal pulses are normal. Skin: Warm dry and intact without rashes, ulcerations or petechiae. Neuro: Alert and orientated x3, strength is +5/5 in all extremities, sensation to touch intact, no gross deficits noted of cranial nerves. Psych: Patient has a well-kept appearance, appropriate affect, mental status attitude thought context and judgment are appropriate for age. Objective Labs Result Diagrams: 05/09/22 10:05 05/09/22 10:05 Labs: Laboratory Results - last 24 hr 05/09/22 05/09/22 05/09/22 10:05 10:05 10:05 WBC 6.4 RBC 4.56 Hgb 14.0 Hct 41.3 MCV 90.5 MCH 30.7 MCHC 33.9 RDW 12.7 Plt Count 213 Neut % (Auto) 58.7 Lymph % (Auto) 33.7 [place] % (Auto) 4.6 Eos % (Auto) 2.4 Baso % (Auto) 0.6 Neut # (Auto) 3700 Lymph # (Auto) 2200 [place] # (Auto) 300 Eos # (Auto) 200 Baso # (Auto) 0 Sodium 142 Potassium 4.2 Chloride 107 Carbon Dioxide 25 BUN 21 H Creatinine 1.02 Estimated GFR > 60 BUN/Creatinine Ratio 20.6 Glucose 121 H Hemoglobin A1c 5.8 Calcium 9.5 Magnesium 2.0 Total Bilirubin 0.4 AST 30 ALT 29 Alkaline Phosphatase 95 Total Creatine Kinase 230 H CK-MB (CK-2) 3.88 H CK-MB (CK-2) Rel Index 1.7 Troponin I < 0.012 Total Protein 7.8 Albumin 4.7 Globulin 3.1 Albumin/Globulin Ratio 1.5 Triglycerides Cholesterol LDL Cholesterol, Calc HDL Cholesterol Lipase 114 Urine RBC Urine WBC Amorphous Sediment Urine Bacteria Ur Culture Indicated? SARS-CoV-2 (PCR) 05/09/22 05/09/22 05/09/22 10:05 11:08 11:52 WBC RBC Hgb Hct MCV MCH MCHC RDW Plt Count Neut % (Auto) Lymph % (Auto) [place] % (Auto) Eos % (Auto) Baso % (Auto) Neut # (Auto) Lymph # (Auto) [place] # (Auto) Eos # (Auto) Baso # (Auto) Sodium Potassium Chloride Carbon Dioxide BUN Creatinine Estimated GFR BUN/Creatinine Ratio Glucose Hemoglobin A1c Calcium Magnesium Total Bilirubin AST ALT Alkaline Phosphatase Total Creatine Kinase CK-MB (CK-2) CK-MB (CK-2) Rel Index Troponin I Total Protein Albumin Globulin Albumin/Globulin Ratio Triglycerides 85 Cholesterol 145 LDL Cholesterol, Calc 91 HDL Cholesterol 37 L Lipase Urine RBC 1-5/hpf Urine WBC 5-10/hpf H Amorphous Sediment 1+ Urine Bacteria Many (>30) H Ur Culture Indicated? Specimen cultured SARS-CoV-2 (PCR) Negative 05/09/22 05/10/22 14:04 04:50 WBC RBC Hgb Hct MCV MCH MCHC RDW Plt Count Neut % (Auto) Lymph % (Auto) [place] % (Auto) Eos % (Auto) Baso % (Auto) Neut # (Auto) Lymph # (Auto) [place] # (Auto) Eos # (Auto) Baso # (Auto) Sodium Potassium Chloride Carbon Dioxide BUN Creatinine Estimated GFR BUN/Creatinine Ratio Glucose Hemoglobin A1c Calcium Magnesium Total Bilirubin AST ALT Alkaline Phosphatase Total Creatine Kinase 179 H CK-MB (CK-2) 3.85 H CK-MB (CK-2) Rel Index 2.2 Troponin I < 0.012 < 0.012 Total Protein Albumin Globulin Albumin/Globulin Ratio Triglycerides Cholesterol LDL Cholesterol, Calc HDL Cholesterol Lipase Urine RBC Urine WBC Amorphous Sediment Urine Bacteria Ur Culture Indicated? SARS-CoV-2 (PCR) PFSH Medical History (Updated 05/09/22 @ 23:09 by FELIPE Russell) Coronary artery spasm Hyperlipidemia Lymphedema Migraines Overweight (BMI 25.0-29.9) Shrt lst uni nral hdache Surgical History History of spinal fusion History of third molar tooth extraction Status post hysterectomy Family History Sister Myocardial infarction History of heart artery stent Father Myocardial infarction History of heart artery stent S/P CABG x 3 Social History household members: family Smoking Status: Former smoker Discharge Plan Discharge Plan Patient Disposition: Home Provider Discharge Comment: You were admitted for chest pain and underwent a stress test and echo which were normal. You should see a him coder (I recommend Dr. Willson at [facility]) to assess you for Lipoprotein a and vasospastic angina. Discharge orders & Medications Prescriptions: Continued amlodipine 5 mg tablet 5 mg PO DAILY pantoprazole 20 mg tablet,delayed release (DR/EC) 20 mg PO DAILY famotidine 20 mg tablet 20 mg PO BID nortriptyline 10 mg capsule 20 mg PO BEDTIME Label Comments: TAKE THREE CAPSULES BY MOUTH EACH NIGHT indomethacin 50 mg capsule 100 mg PO BID Label Comments: take 2 capsules by mouth twice a day with meals nitroglycerin 0.4 mg Tablet, Sublingual 0.4 mg SUBLINGUAL Q5M PRN (Reason: chest pain) Rx Instructions: do not exceed 3 doses per episode acyclovir 200 mg capsule 200 mg PO BID topiramate 100 mg tablet 50 mg PO BID rosuvastatin 20 mg Tablet 20 mg PO DAILY Follow up/Referrals: Jenny Mccoy MD [Primary Care Provider] - Discharge Data Primary Care Provider: Jenny Mccoy Attending Provider: Mayo Elizabeth
[2022-05-10] MEDS: ACETAMINOPHEN 325 MG TABLET 650 MG PO (08:20)
[2022-05-10] MEDS: AMLODIPINE 5 MG TABLET PO (09:12)
[2022-05-10] MEDS: TOPIRAMATE 100 MG TABLET 50 MG PO (09:12)
[2022-05-10] MEDS: FAMOTIDINE 20 MG TABLET PO (09:12)
[2022-05-10] MEDS: ATORVASTATIN 20 MG TABLET 40 MG PO (09:12)
[2022-05-10] MEDS: ASPIRIN EC 81 MG TABLET PO (09:12)
[2022-05-10] MEDS: SODIUM CHLORIDE 0.9% FLUSH 10 ML IV (09:21)
[2022-05-10] MEDS: ACYCLOVIR 200 MG CAPSULE PO (09:45)
[2022-05-10 11:13] VITALS: BP 122/81; PULSE 83; RESP 18; TEMP 36.4; O2SAT 99
--- NOTE | 2022-05-10 13:53 | CM.DANOTE ---
Patient is a 51 yo female who was admitted on 05/09/22 for Chest Pain. Pt has [employer] for insurance and her PCP is Jenny Mccoy on [facility] [email or web address]. EMR was reviewed. Per MD, pt with hx of lymphedema and admitted for Echo and Stress test as pt has family hx of cardiac arrest. Per drain technician, pt's stress test scheduled for 1300 today and pending results can likely d/c home with outpt f/u. 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 Pt drives and does not anticipate any needs at d/c but plans to have outpt follow up after d/c. Plan: SW to follow closely for stress test and echo results to confirm safe plan of d/c home when stable and any further identified needs. GARY Patton Discharge Planning/Care Management CM Discharge Assessment Start: 05/10/22 13:52 Freq: Status: Active Protocol: Document 05/10/22 13:52 BF (Rec: 05/10/22 13:53 BF [id number]) Discharge Planning Assessment Assigned Crusher Tender GARY Monte Advance Directives? No Advance Directives on File No History Provided By Patient,Medical Record Has Patient been admitted in last 30 No days? Prior Living Arrangements House Household Members family Type of transporation used prior to Drives own vehicle admit Independent with ADL's Yes Is patient alert and oriented? Yes Caregiver for Another No Barriers to Discharge No Discharge Plan Home Transportation Arrangement Friend or family to transport at d/c Referrals Initiated None needed Additional Comment pending stress test and echo results Whiteboard Updated in Patient Room with Yes name and ext. # of Crusher Tender Review Status In Process Please Provide Date Initial DC 05/10/22 Assessment Was Performed Next Review Type Continued Stay Review
[2022-05-10 16:20] VITALS: BP 108/78; PULSE 81; RESP 18; TEMP 36.6; O2SAT 98
--- NOTE | 2022-05-10 18:23 | DI.NM.S_ITS ---
DATE OF SERVICE: 05/10/2022 PROCEDURE PERFORMED: Exercise stress test. INDICATION: Chest pain with history of coronary artery spasm, hyperlipidemia. CARDIAC STRESS: The patient underwent exercise stress test under the supervision of an attending staff. She walked on Cipriano protocol for 9 minutes and 9 seconds, achieved maximum heart rate of 174, which was 103 percent of target heart rate. Initial blood [id number]. Peak blood pressure 160, however, diastolic blood pressure was 96. Baseline rhythm was sinus with flattening of ST-segment in inferolateral leads. During stress, no convincing new ischemic changes seen. No significant arrhythmias. The patient had twinges in the right side of the chest, which was, on a scale of 1 to 10, 3 in intensity. Atypical in nature. Resolved in recovery. No significant arrhythmias seen. Had some shortness of breath. Achieved 10.1 METs of workload. CONCLUSION: Exercise stress test is negative for significant obvious inducible ischemic changes. Baseline flattening of ST-segment in the inferolateral leads. Walked on Cipriano protocol for 9 minutes, 09 seconds. Achieved 10.1 METs of workload. 103 percent of target heart rate. Peak blood pressure 166/96 mmHg. No significant arrhythmias seen. Overall low-risk exercise stress test. The patient also had atypical chest pain. Sara Mcclellan - YEHUDA/wilfredo/yosef doc#: [id number]/job#: [id number] dd: 05/10/2022 17:04:00 dt: 05/10/2022 18:13:00 DICTATING /COPIES TO: Daniel Alegria MD COPIES MNE: VIVIAN;
== END 2022-05-10 17:42 | disposition home or self-care (01) ==
LOC: ED 11:51 → AC 14:46
PROVIDERS: Admitting Provider Student in an Organized Health Care Education/Training Program; Emergency Provider Emergency Medicine; PCP Internal Medicine; Referring Provider Emergency Medicine; Visit Provider Student in an Organized Health Care Education/Training Program
DX: R07.9 Chest pain, unspecified (principal); E78.5 Hyperlipidemia, unspecified; E66.3 Overweight; Z68.29 Body mass index [BMI] 29.0-29.9, adult; G44.059 Short lasting unilateral neuralgiform headache with conjunctival injection and tearing (SUNCT), not intractable; I89.0 Lymphedema, not elsewhere classified; K21.9 Gastro-esophageal reflux disease without esophagitis; Z20.822 Contact with and (suspected) exposure to COVID-19
CPT/HCPCS: 36415; 71045; 80053; 80061; 81003; 81015; 82550; 82553; 83036; 83690; 83735; 84484; 85025; 87077; 87086; 87186; 87635; 93005; 93017; 93306; 96360; 99284; C9803; G0378; A9270

== ENCOUNTER 2024-08-10 09:20 | Emergency (ER) | payer OTHER, SELFPAY ==
[2022-05-09 15:56] VITALS: BMI 29.2
[2024-08-10 09:32] VITALS: BP 118/76; PULSE 74; RESP 16; TEMP 36; O2SAT 96; BMI 31.8
--- NOTE | 2024-08-10 11:41 | DI.CT.S_ITS ---
PROCEDURE: CT LUMBAR SPINE WO CON INDICATIONS: lower back pain TECHNIQUE: Noncontrast 3 mm thick sections acquired from the T12 level to the sacrum. Sagittal and coronal reformats were constructed. For radiation dose reduction, the following was used: automated exposure control. COMPARISON: None. FINDINGS: Image quality: Excellent. Bones: There is normal bony alignment. No acute vertebral body compression fractures. No suspicious lytic or blastic bony lesions. No pars defects. T12-L1: Normal L1-L2: Normal L2-L3: Moderate disc height loss, vacuum disc phenomenon, broad-based disc bulge. L3-L4: Broad-based disc bulge. L4-L5: Broad-based disc bulge. L5-S1: Broad-based disc bulge. Soft tissues: No retroperitoneal masses or hematomas. Visualized aorta is normal in caliber. IMPRESSION: Multiple broad-based disc bulges, without significant spinal canal or neural foraminal narrowing. Dictated by: Isaias Brush M.D. on 08/10/2024 at 12:19 Approved by: Isaias Brush M.D. on 08/10/2024 at 12:25
--- NOTE | 2024-08-10 11:42 | ED.BACK ---
HPI - Back Pain/Injury <Mikey Epperson PA-C - Last Filed: 08/10/24 15:24> General Chief Complaint: Back Pain/Injury Stated Complaint: Low back pain.Hard time walking pain down L leg Time Seen by Provider: 08/10/24 11:26 Source: patient History of Present Illness HPI Narrative: 54-year-old female with past medical history migraines, hyperlipidemia, coronary artery spasm presents to the ED with 3 days of lower back pain with pain radiating down the back of the left leg. Patient states that she was moving around and stacking some tubs/boxes 3 days ago, following which her lower back started feeling sore. Patient states that she has been progressively worsening, today her back is stiff and she is most comfortable leaning forward. Pain is aggravated with movement. Patient reports sporadic tingling and numbness in the left lower leg. No saddle paresthesias. No urinary hesitancy, urinary incontinence, bowel incontinence. Patient does have prior history is of back injury, no back surgeries. Related Data Home Medications Medication Instructions Recorded Confirmed acyclovir 200 mg capsule 200 mg PO BID 05/09/22 05/09/22 amlodipine 5 mg tablet 5 mg PO DAILY 05/09/22 05/09/22 famotidine 20 mg tablet 20 mg PO BID 05/09/22 05/09/22 indomethacin 50 mg capsule 100 mg PO BID 05/09/22 05/09/22 nitroglycerin 0.4 mg sublingual 0.4 mg sublingual Q5M PRN chest 05/09/22 05/09/22 tablet pain nortriptyline 10 mg capsule 20 mg PO BEDTIME 05/09/22 05/09/22 pantoprazole 20 mg tablet,delayed 20 mg PO DAILY 05/09/22 05/09/22 release rosuvastatin 20 mg tablet 20 mg PO DAILY 05/09/22 05/09/22 topiramate 100 mg tablet 50 mg PO BID 05/09/22 05/09/22 Previous Rx's Medication Instructions Recorded cyclobenzaprine 10 mg tablet 10 mg PO TID PRN muscle spasm 5 08/10/24 days #15 tabs Allergies Allergy/AdvReac Type Severity Reaction Status Date / Time No Known Drug Allergies Allergy Verified 08/10/24 09:35 Review of Systems <Mikey Epperson PA-C - Last Filed: 08/10/24 15:24> Constitutional Constitutional: Denies chills, Denies fatigue, Denies fever(s), Denies frequent falls, Denies lethargy and Denies weakness Eyes Eyes: Denies change in vision, Denies eye discharge, Denies irritation and Denies loss of vision ENT Ears, Nose, Mouth, and Throat: Denies change in voice, Denies dizziness, Denies neck pain, Denies sore throat and Denies throat swelling Cardiovascular Cardiovascular: Denies chest pain, Denies irregular heart rhythm, Denies lightheadedness, Denies palpitations, Denies dyspnea, Denies dyspnea on exertion and Denies orthopnea Respiratory Respiratory: Denies cough, Denies dyspnea, Denies dyspnea on exertion and Denies wheezing Gastrointestinal Gastrointestinal: Denies abdominal pain, Denies change in bowel habits, Denies diarrhea, Denies nausea and Denies vomiting Musculoskeletal Musculoskeletal: Reports back pain, Denies neck pain, Reports numbness, Reports radiating pain into limb and Reports tingling Integumentary/Breasts Skin/Breast: Denies pruritus, Denies erythema, Denies rash and Denies wounds Neurologic Neurologic: Denies behavioral changes, Denies confusion, Denies dizziness, Denies frequent falls, Denies loss of vision, Reports numbness, Reports tingling and Denies weakness Psychiatric Psychiatric: Denies anxiety, Denies behavioral changes, Denies confusion, Denies depression, Denies homicidal ideation and Denies suicidal ideation Endocrine Endocrine: Denies fatigue, Denies flushing and Denies palpitations Hematologic/Lymphatic Hematologic/Lymphatic: Denies easy bruising Allergic/Immunologic Allergic/Immunologic: Denies urticaria, Denies throat swelling and Denies wheezing Patient History <Mikey Epperson PA-C - Last Filed: 08/10/24 15:24> Medical History Overweight (BMI 25.0-29.9) Migraines Shrt lst uni nral hdache Lymphedema Coronary artery spasm Hyperlipidemia Surgical History History of third molar tooth extraction Status post hysterectomy History of spinal fusion Family History Sister Myocardial infarction History of heart artery stent Father Myocardial infarction History of heart artery stent S/P CABG x 3 Social History household members: family Smoking Status: Former smoker Smoking Status: Former smoker tobacco type: cigarettes alcohol intake frequency: 0-2 drinks per day Substance Use Type: does not use Exam <Mikey Epperson PA-C - Last Filed: 08/10/24 15:24> Narrative Exam Narrative: Const General:?cooperative, healthy appearing and comfortable [facility] Head:?normal to inspection Ears:?hearing grossly normal bilaterally Nose:?external nose normal Face and sinus:?normal facial exam and sinuses nontender Mouth:?oral mucosae normal Throat:?posterior oropharynx normal Eyes General:?appearance normal, both eyes and all related structures Neck Neck:?normal visual inspection and no lymphadenopathy noted Resp Effort & Inspection:?normal respiratory effort Auscultation:?clear to auscultation bilaterally Cardio Rate:?regular rate Rhythm:?regular rhythm Musculoskeletal There is some midline tenderness to palpation in the lumbar region. No paraspinal tenderness to palpation. Range of motion limited by pain. Neurovascularly intact. Neuro General:?patient alert, patient awake and patient oriented x3 Initial Vital Signs Initial Vital Signs: Vital Signs Temperature 96.8 F L 08/10/24 09:32 Pulse Rate 74 08/10/24 09:32 Respiratory Rate 16 08/10/24 09:32 Blood Pressure 118/76 08/10/24 09:32 Pulse Oximetry 96 08/10/24 09:32 Oxygen Delivery Method Room Air 08/10/24 09:32 <Iman Ballard DO - Last Filed: 08/11/24 12:03> Initial Vital Signs Initial Vital Signs: Vital Signs Temperature 96.8 F L 08/10/24 09:32 Pulse Rate 74 08/10/24 09:32 Respiratory Rate 16 08/10/24 09:32 Blood Pressure 118/76 08/10/24 09:32 Pulse Oximetry 96 08/10/24 09:32 Oxygen Delivery Method Room Air 08/10/24 09:32 Course <Mikey Epperson PA-C - Last Filed: 08/10/24 15:24> Orders Ordered: Discontinued Medications Acetaminophen (Acetaminophen 325 Mg Tablet) 975 mg PO NOW ONE Stop: 08/10/24 11:41 Last Admin: 08/10/24 11:46 Dose: 975 mg Documented By: HUGO Cyclobenzaprine HCl (Cyclobenzaprine 10 Mg Tablet) 10 mg PO NOW ONE Stop: 08/10/24 11:41 Last Admin: 08/10/24 11:46 Dose: 10 mg Documented By: HUGO Ketorolac Tromethamine (Ketorolac 30 Mg/Ml Vial) 30 mg IM NOW ONE Stop: 08/10/24 11:41 Last Admin: 08/10/24 11:46 Dose: 30 mg Documented By: MPO Vital Signs Vital signs: Vital Signs - 8 hr 08/10/24 09:32 08/10/24 13:10 Temperature 96.8 F L 98.6 F Pulse Rate 74 70 Respiratory Rate 16 20 Blood Pressure 118/76 120/74 Pulse Oximetry 96 100 Oxygen Delivery Method Room Air Room Air <Iman Ballard DO - Last Filed: 08/11/24 12:03> Orders Ordered: Discontinued Medications Acetaminophen (Acetaminophen 325 Mg Tablet) 975 mg PO NOW ONE Stop: 08/10/24 11:41 Last Admin: 08/10/24 11:46 Dose: 975 mg Documented By: HUGO Cyclobenzaprine HCl (Cyclobenzaprine 10 Mg Tablet) 10 mg PO NOW ONE Stop: 08/10/24 11:41 Last Admin: 08/10/24 11:46 Dose: 10 mg Documented By: HUGO Ketorolac Tromethamine (Ketorolac 30 Mg/Ml Vial) 30 mg IM NOW ONE Stop: 08/10/24 11:41 Last Admin: 08/10/24 11:46 Dose: 30 mg Documented By: HUGO Vital Signs Vital signs: Vital Signs - 8 hr 08/10/24 09:32 08/10/24 13:10 Temperature 96.8 F L 98.6 F Pulse Rate 74 70 Respiratory Rate 16 20 Blood Pressure 118/76 120/74 Pulse Oximetry 96 100 Oxygen Delivery Method Room Air Room Air MDM - Back Pain/Injury <Mikey Epperson PA-C - Last Filed: 08/10/24 15:24> MDM Narrative Medical decision making narrative: 54-year-old female with past medical history migraines, hyperlipidemia, coronary artery spasm presents to the ED with 3 days of lower back pain with pain radiating down the back of the left leg. Concern for fracture/dislocation versus disc herniation versus musculoskeletal sprain/strain versus other. Will obtain CT lumbar spine. Will give Toradol, Tylenol, Flexeril. Will reassess. CT scan shows multiple broad-based disc bulges from L2 through S1. No significant spinal canal or neural foraminal narrowing. no acute vertebral body compression fractures. Patient's symptoms improved significantly with Toradol, Tylenol, Flexeril. Recommend patient continue Flexeril, ibuprofen, Tylenol at home. Recommend ice, heat. Recommend follow-up with PCP as soon as possible. ED return precautions were discussed with patient. Patient verbalized understanding. Medical records reviewed: Yes Discharge Plan Departure Patient Disposition: Home Clinical Impression: Back pain Qualifiers: Back pain location: low back pain Chronicity: acute Back pain laterality: left Sciatica presence: with sciatica Sciatica laterality: sciatica of left side Qualified Code(s): M54.42 - Lumbago with sciatica, left side Instructions: DI for Back Pain With Sciatica Activity Restrictions/Additional Instructions: You were evaluated in the ED today for lower back pain. Your CT scan does not show any fractures or dislocations, it does show some bulging discs. Your symptoms improved with a muscle relaxant and Toradol. You are being prescribed muscle relaxant to continue using at home as needed. Please also continue ibuprofen 800 mg every 8 hours with food. Please also take Tylenol 1000 mg every 8 hours. You may ice or apply heat for your symptoms. Please follow-up with your PCP for further evaluation. Return to the ED if you have worsening symptoms, numbness, tingling, weakness, urinary difficulties. Prescriptions: New cyclobenzaprine 10 mg tablet 10 mg PO TID PRN (Reason: muscle spasm) 5 Days Qty: 15 0RF No Action amlodipine 5 mg tablet 5 mg PO DAILY pantoprazole 20 mg tablet,delayed release (DR/EC) 20 mg PO DAILY famotidine 20 mg tablet 20 mg PO BID nortriptyline 10 mg capsule 20 mg PO BEDTIME Patient Comments: TAKE THREE CAPSULES BY MOUTH EACH NIGHT indomethacin 50 mg capsule 100 mg PO BID Patient Comments: take 2 capsules by mouth twice a day with meals nitroglycerin 0.4 mg Tablet, Sublingual 0.4 mg SUBLINGUAL Q5M PRN (Reason: chest pain) Rx Instructions: do not exceed 3 doses per episode acyclovir 200 mg capsule 200 mg PO BID topiramate 100 mg tablet 50 mg PO BID rosuvastatin 20 mg Tablet 20 mg PO DAILY Referrals: Jenny Mccoy MD [Primary Care Provider] - Stand Alone Forms: Patient Portal/API/Survey ED Sign-out <Iman Ballard DO - Last Filed: 08/11/24 12:03> Cosign ED Attending Cosnaborature Attestation: I was immediately available in the department for consultation.
[2024-08-10] MEDS: KETOROLAC 30 MG/ML VIAL IM (11:46)
[2024-08-10] MEDS: ACETAMINOPHEN 325 MG TABLET 975 MG PO (11:46)
[2024-08-10] MEDS: CYCLOBENZAPRINE 10 MG TABLET PO (11:46)
--- NOTE | 2024-08-10 12:50 | PC.NURSE ---
Pt states that she feels better. Rates pain as 6/10.
[2024-08-10 13:10] VITALS: BP 120/74; PULSE 70; RESP 20; TEMP 37; O2SAT 100
== END 2024-08-10 13:19 | disposition home or self-care (01) ==
PROVIDERS: Emergency Provider Student in an Organized Health Care Education/Training Program; PCP Internal Medicine
DX: M54.42 Lumbago with sciatica, left side (principal)
CPT/HCPCS: 72131; 96372; 99283; 99284; J1885